=== PATIENT | male | born 1995 | race Asian ===

== ENCOUNTER 2023-08-08 19:36 | Emergency (ER) | payer BC ==
[2023-08-08 19:42] VITALS: BP 139/84; PULSE 95; RESP 20; TEMP 99.1; BMI 29.6
== END 2023-08-08 21:42 | disposition home or self-care (01) ==
LOC: JER 19:36
DX: R51.9 Headache, unspecified (principal); M54.2 Cervicalgia; R53.83 Other fatigue; R11.10 Vomiting, unspecified; W20.8XXA Other cause of strike by thrown, projected or falling object, initial encounter
CPT/HCPCS: 70450-TC; 72125-TC; 99284-25